=== PATIENT | female | born 2000 | race Caucasian/White ===

== ENCOUNTER 2020-08-11 02:27 | Emergency (ER) | payer OTHER ==
[~2020-08-11] VITALS: Ht 172.7 cm; Wt 78.2 kg
[2020-08-11 02:36] VITALS: TEMP 98.1
[2020-08-11] MEDS ORDERED: CEPHALEXIN500 M1 PO (04:04)
[2020-08-11 04:50] VITALS: BP 129/80; PULSE 80
== END 2020-08-11 04:53 | disposition home or self-care (01) ==
LOC: COL.ER 02:27
DX: S96.12 Laceration of muscle and tendon of long extensor muscle of toe at ankle and foot level (principal); W25.XXXA Contact with sharp glass, initial encounter; Y92.009 Unspecified place in unspecified non-institutional (private) residence as the place of occurrence of the external cause
CPT/HCPCS: J0690; L4386